=== PATIENT | male | born 1980 | race Caucasian/White ===

== ENCOUNTER 2024-01-10 10:02 | Emergency (ER) | payer SELFPAY ==
[2024-01-10 11:20] LABS: Absolute Basophils 0.1 K/uL (0-0.5); Absolute Eosinophils 0.1 K/uL (0-0.5); Absolute Lymphocytes (CBC) 1.4 K/uL (0.7-4.9); Absolute Monocytes 0.7 K/uL (0.1-1.3); Basophils % 1.1 % (0-1.3); Eosinophils % 1.6 % (0-4.4); Hematocrit 48.7 % (39.6-49.0); Hemoglobin 16.4 g/dL (13.6-17.9); Lymphocytes % 18.7 % (15.3-44.8); MCH 32.1 pg (27.0-35.0); MCHC 33.7 g/dL (32.0-36.0); MCV 95.4 fL (80-100); MPV 8.2 fL (7.6-11.3); Monocytes % 9.8 % (3.3-12.3); Neutrophils % 68.8 % (41.7-73.7); Platelets 238 thou/uL (152-406); Red Cell Distribution Width 13.1 % (12.1-15.2)
[2024-01-10] MEDS ORDERED: KETOROLAC 30 MG/ML INJ ONE (11:24)
[2024-01-10 11:48] LABS: ALT/SGPT 51 U/L (16-61); AST/SGOT 21 U/L (15-37); Albumin 3.8 g/dL (3.4-5.0); Albumin/Globulin Ratio 1.1 (1.1-1.8); Alkaline Phosphatase 78 U/L (45-117); Anion Gap 8.1 mEq/L (5.0-15.0); BUN Blood Urea Nitrogen 14 mg/dL (7-18); Bicarbonate 25 mEq/L (21-32); Bilirubin Total 0.3 mg/dL (0.2-1.0); Creatine Phosphokinase 123 U/L (39-308); Globulin 3.5 g/dL (2.3-3.5); Glomerular Filtration Rate 101 ml/min (=/>90); Glucose Level 107 mg/dL (74-106); Potassium 4.1 mEq/L (3.5-5.1); Protein, Total 7.3 g/dL (6.4-8.2); Sodium Level 138 mEq/L (136-145); Troponin High Sensitivity 3.1 pg/mL (<58.9)
[2024-01-10 11:57] LABS: Bilirubin Direct < 0.2 mg/dL (0-0.2); Bilirubin Indirect, Calculated 0.1 mg/dL (0.2-0.8)
--- NOTE | 2024-01-10 12:16 | EDPHYS ---
Physician Documentation [facility] Name: Andrew Henson Age: 43 yrs Sex: Male : 1980 Arrival Date: 01/10/2024 Time: 10:02 Bed 8 Private MD: ED Physician Dylon Saunders HPI: 01/09 10:56 This 43 yrs old Male presents to ER via Ambulatory with complaints of Pain All Over, rt General Weakness. 10:56 Patient presents to the ED with pain. Patient noticed the pain starting yesterday when rt he was on a tractor, noted to both of the thighs, and the rest of the lower back. Patient did not take anything for the symptoms. Denies fever, chills. Denies other acute complaints, symptoms are moderate in severity, no other aggravating or alleviating factors.. Historical: - Allergies: 10:14 No Known Allergies; hb - Home Meds: 10:14 None [Active]; hb - PMHx: 10:14 None; hb - PSHx: 10:14 Tonsillectomy; Hand - Right; hb - Immunization history:: Adult Immunizations up to date. - Infectious Disease History:: Denies. - Social history:: Smoking status: Patient reports the use of cigarette tobacco products, Reported history of juuling and/or vaping. - Family history:: not pertinent. ROS: 10:56 Constitutional: Negative for fever, chills, and weight loss, Cardiovascular: Negative rt for chest pain, palpitations, and edema, Respiratory: Negative for shortness of breath, cough, wheezing, and pleuritic chest pain, Abdomen/GI: Negative for abdominal pain, nausea, vomiting, diarrhea, and constipation, Skin: Negative for injury, rash, and discoloration, 10:56 Back: Positive for pain at rest, Negative for injury or acute deformity, 10:56 MS/extremity: Positive for pain, Negative for injury or acute deformity, Exam: 10:56 Constitutional: This is a well developed, well nourished patient who is awake, alert, rt and in no acute distress. Head/Face: Normocephalic, atraumatic. Chest/axilla: Normal chest wall appearance and motion. Nontender with no deformity. No lesions are appreciated. Cardiovascular: Regular rate and rhythm with a normal S1 and S2. No gallops, murmurs, or rubs. Normal PMI, no JVD. No pulse deficits. Respiratory: Lungs have equal breath sounds bilaterally, clear to auscultation and percussion. No rales, rhonchi or wheezes noted. No increased work of breathing, no retractions or nasal flaring. Abdomen/GI: Soft, non-tender, with normal bowel sounds. No distension or tympany. No guarding or rebound. No evidence of tenderness throughout. Skin: Warm, dry with normal turgor. Normal color with no rashes, no lesions, and no evidence of cellulitis. MS/ Extremity: Pulses equal, no cyanosis. Neurovascular intact. Full, normal range of motion. Neuro: Awake and alert, GCS 15, oriented to person, place, time, and situation. Cranial nerves II-XII grossly intact. Motor strength 5/5 in all extremities. Sensory grossly intact. Cerebellar exam normal. Normal gait. 11:10 ECG was reviewed by the Attending Physician. rt Vital Signs: 10:16 BP 148 / 91; Pulse 77; Resp 16; Temp 97.8(TE); Pulse Ox 97% on R/A; Weight 99.79 kg; hb Height 6 ft. 4 in. ; Pain 8/10; 11:31 BP 127 / 89; Pulse 65; Resp 16 S; Pulse Ox 100% on R/A; Pain 6/10; kc6 12:14 BP 128 / 91; Pulse 77; Resp 17 S; Pulse Ox 97% on R/A; kc6 10:16 Body Mass Index 26.78 (99.79 kg, 193.04 cm) hb 10:16 Pain Scale: Adult hb 11:31 Pain Scale: Adult kc6 MDM: 10:17 Medical Screening Exam initiated rt 12:16 Differential Diagnosis Musculoskeletal pain, rhabdomyolysis, electrolyte disturbance. rt Data reviewed: vital signs, nurses notes, lab test result(s), EKG. I considered the following discharge prescriptions or medication management in the emergency department Medications were administered in the Emergency Department. See MAR. Test considered but Not performed: X-ray: Denies trauma, ambulatory thought difficulty, x-rays are not indicated. Counseling: I had a detailed discussion with the patient and/or guardian regarding the historical points, exam findings, and any diagnostic results supporting the discharge/admit diagnosis, lab results, the need for outpatient follow up, to return to the emergency department if symptoms worsen or persist or if there are any questions or concerns that arise at home. Response to treatment: the patient's symptoms have mildly improved after treatment. 01/09 10:40 Order name: Basic Metabolic Panel; Complete Time: 11:58 rt 01/09 10:40 Order name: CBC with Diff; Complete Time: 11:58 rt 01/09 10:40 Order name: LFT's; Complete Time: 11:58 rt 01/09 10:40 Order name: Troponin HS; Complete Time: 11:58 rt 01/09 10:40 Order name: CPK; Complete Time: 11:58 rt 01/09 10:40 Order name: EKG; Complete Time: 10:42 rt 01/09 10:40 Order name: Cardiac monitoring; Complete Time: 11:11 rt 01/09 10:40 Order name: EKG - Nurse/Tech; Complete Time: 11:11 rt 01/09 10:40 Order name: O2 Per Protocol; Complete Time: 11:12 rt 01/09 10:40 Order name: O2 Sat Monitoring; Complete Time: 11:12 rt EC:10 Rate is 64 beats/min. Rhythm is regular, Normal Sinus Rhythm with No ectopy. QRS [place] rt is Normal. RI interval is normal. QRS interval is normal. QT interval is normal. No Q waves. T waves are Normal. No ST changes noted. Interpreted by me. Administered Medications: 11:30 Drug: Ketorolac IM 30 mg IM once Route: IM; Site: right deltoid; kc6 12:14 Follow up: Response: No adverse reaction kc6 12:33 Drug: Cyclobenzaprine PO 10 mg PO once Route: PO; kc6 12:47 Follow up: Response: No adverse reaction kc6 Disposition Summary: 01/10/24 12:15 Discharge Ordered Notes: Location: Home rt Problem: new rt Symptoms: have improved rt Condition: Stable rt Diagnosis - Muscular pain rt Followup: rt - With: Private Physician - When: 2 - 3 days - Reason: Discharge Instructions: - Discharge Summary Sheet rt - Musculoskeletal Pain rt Forms: - Medication Reconciliation Form rt - Antibiotic Education rt - Prescription Opioid Use rt - Patient Portal Instructions rt - Leadership Thank You Letter rt Prescriptions: - Cyclobenzaprine 10 mg Oral tablet - take 1 tablet ORAL route every 8 hours As needed; 15 tablet; Refills: 0, rt Product Selection Permitted Signatures: Dispatcher [employer] Cindy Olson, RN RN Estephanie Hutton RN RN kc6 Dylon Saunders MD MD rt
--- NOTE | 2024-01-10 12:16 | ER ---
Nurse's Notes [facility] Name: Andrew Henson Age: 43 yrs Sex: Male : 1980 Arrival Date: 01/10/2024 Time: 10:02 Bed 8 Private MD: Diagnosis: Muscular pain Presentation: 01/09 10:14 Chief complaint: Pain all over since yesterday. Denies N/V/D/cough/fever. Coronavirus hb screen: At this time, the client does not indicate any symptoms associated with coronavirus-19. Ebola Screen: No symptoms or risks identified at this time. Initial Sepsis Screen: Does the patient meet any 2 criteria? No. Patient's initial sepsis screen is negative. Does the patient have a suspected source of infection? No. Patient's initial sepsis screen is negative. Risk Assessment: Do you want to hurt yourself or someone else? Patient reports no desire to harm self or others. Onset of symptoms was January 09, 2024. 10:14 Method Of Arrival: Ambulatory hb 10:14 Acuity: LUIS DANIEL 3 hb Triage Assessment: 10:14 General: Appears in no apparent distress. Behavior is calm, cooperative. Pain: Pain hb currently is 8 out of 10 on a pain scale. Historical: - Allergies: 10:14 No Known Allergies; hb - Home Meds: 10:14 None [Active]; hb - PMHx: 10:14 None; hb - PSHx: 10:14 Tonsillectomy; Hand - Right; hb - Immunization history:: Adult Immunizations up to date. - Infectious Disease History:: Denies. - Social history:: Smoking status: Patient reports the use of cigarette tobacco products, Reported history of juuling and/or vaping. - Family history:: not pertinent. Screenin:31 [facility] ED Fall Risk Assessment (Adult) History of falling in the last 3 months, kc6 including since admission No falls in past 3 months (0 pts) Confusion or Disorientation No (0 pts) Intoxicated or Sedated No (0 pts) Impaired Gait No (0 pts) Mobility Assist Device Used No (0 pt) Altered Elimination No (0 pt) Score/Fall Risk Level 0 - 2 = Low Risk Oriented to surroundings. Abuse screen: Denies threats or abuse. Denies injuries from another. Nutritional screening: No deficits noted. Tuberculosis screening: No symptoms or risk factors identified. Assessment: 11:32 General: Appears in no apparent distress. comfortable, well groomed, well developed, kc6 Behavior is calm, cooperative, appropriate for age. Pain: Complains of pain in back, right leg and left leg Pain currently is 7 out of 10 on a pain scale. Neuro: Level of Consciousness is awake, alert, obeys commands, Oriented to person, place, time, situation, Appropriate for age. Cardiovascular: Capillary refill < 3 seconds. Respiratory: Airway is patent Trachea midline Respiratory effort is even, unlabored, Respiratory pattern is regular, symmetrical. GI: No signs and/or symptoms were reported involving the gastrointestinal system. : No signs and/or symptoms were reported regarding the genitourinary system. EENT: No signs and/or symptoms were reported regarding the EENT system. Derm: No signs and/or symptoms reported regarding the dermatologic system. Skin is intact, is healthy with good turgor, Skin is pink, warm \T\ dry. Musculoskeletal: No signs and/or symptoms reported regarding the musculoskeletal system. Circulation, motion, and sensation intact. Capillary refill < 3 seconds, Range of motion: intact in all extremities. 12:13 Reassessment: Patient appears in no apparent distress at this time. No changes from kc6 previously documented assessment. Patient and/or family updated on plan of care and expected duration. Pain level reassessed. Patient is alert, oriented x 3, equal unlabored respirations, skin warm/dry/pink. Vital Signs: 10:16 BP 148 / 91; Pulse 77; Resp 16; Temp 97.8(TE); Pulse Ox 97% on R/A; Weight 99.79 kg; hb Height 6 ft. 4 in. ; Pain 8/10; 11:31 BP 127 / 89; Pulse 65; Resp 16 S; Pulse Ox 100% on R/A; Pain 6/10; kc6 12:14 BP 128 / 91; Pulse 77; Resp 17 S; Pulse Ox 97% on R/A; kc6 10:16 Body Mass Index 26.78 (99.79 kg, 193.04 cm) hb 10:16 Pain Scale: Adult hb 11:31 Pain Scale: Adult kc6 ED Course: 10:06 Patient arrived in ED. im 10:14 Triage completed. hb 10:16 Arm band placed on. hb 10:17 Dylon Saunders MD is Attending Physician. rt 11:12 Initial lab(s) drawn, by ED staff, sent to lab. EKG done, by ED staff, reviewed by Dylon Saunders MD. Inserted saline lock: 20 gauge in right forearm, using aseptic technique. Blood collected. Flushed with 10 mL NS. 11:21 Estephanie Ji RN is Primary Nurse. kc6 11:31 Patient has correct armband on for positive identification. Bed in low position. Call kc6 light in reach. Side rails up X 1. Adult w/ patient. Pulse ox on. NIBP on. Door closed. Noise minimized. Lights dimmed. Pillow given. 12:47 No provider procedures requiring assistance completed. IV discontinued, intact, kc6 bleeding controlled, No redness/swelling at site. Pressure dressing applied. Administered Medications: 11:30 Drug: Ketorolac IM 30 mg IM once Route: IM; Site: right deltoid; kc6 12:14 Follow up: Response: No adverse reaction kc6 12:33 Drug: Cyclobenzaprine PO 10 mg PO once Route: PO; kc6 12:47 Follow up: Response: No adverse reaction kc6 Medication: 12:47 VIS not applicable for this client. kc6 Outcome: 12:15 Discharge ordered by MD. rt 12:47 Discharged to home ambulatory, with significant other, kc6 12:47 Condition: good 12:47 Discharge instructions given to patient, significant other, Instructed on discharge instructions, follow up and referral plans. no drinking with medication, no driving heavy equipment, medication usage, Demonstrated understanding of instructions, follow-up care, medications, Prescriptions given X 1, 12:47 Patient left the ED. kc6 Signatures: Cindy Ware RN RN hb Estephanie Ji RN RN kc6 Dylon Saunders MD MD rt Narcisa Ferguson im Corrections: (The following items were deleted from the chart) 10:57 10:14 Acuity: LUIS DANIEL 4 hb hb
[2024-01-10] MEDS ORDERED: CYCLOBENZAPRINE 10 MG TAB ONE (12:20)
[2024-01-10 13:05] VITALS: TEMP 97.8
[2024-01-10 13:12] VITALS: BP 128/91; O2SAT 97
--- NOTE | 2024-01-14 13:06 | EKG ---
Test Date: 2024-01-10 Test Time: 11:05:59 Hospital Attendant: BP MEASUREMENT RESULTS: Intervals: Rate: 64 MA: 150 QRSD: 112 QT: 412 QTc: 425 [place]: P: 25 MA: 150 QRS: 52 T: 24 INTERPRETIVE STATEMENTS: Normal sinus rhythm Normal ECG No previous ECG available for comparison Electronically Signed On 01-14-24 12:53:49 CDT by Tres [place]
== END 2024-01-10 12:47 | disposition home or self-care (01) ==
LOC: ER 10:02
DX: M79.10 Myalgia, unspecified site (principal); R53.1 Weakness
CPT/HCPCS: 36415; 80048; 80076; 82550; 84484; 85025; 93005; 96372; 99285